=== PATIENT | female | born 1945 | race Caucasian/White ===

== ENCOUNTER → 2016-11-18 | Day surgery (SDC) | payer OTHER ==
[~2016-11-18] VITALS: Ht 160 cm; Wt 54.0 kg
[~2016-11-18] MED LIST: *RESP: ALBUTEROL 2.5 MG/3 ML NEB (PRN) PERIprocedural Use ONLY NEB ONE; ATOR40TA16 PO; BUPIVACAINE HCL PF 0.25% 30 ML VIAL ONE; DEXAMETHASONE SOD PHOS 4 MG/ML VIAL ONE; FAMOTIDINE 20 MG/2 ML VIAL ONE; HYDROmorphone HCL PF 1 MG/ML VIAL IV ONE; HYDROmorphone HCL PF 1 MG/ML VIAL ONE; LACTATED RINGER'S 1000 ML INJ 1,000 ML IV ONE; LACTATED RINGER'S 1000 ML INJ 1,000 ML ONE; LIDOCAINE HCL 1% 30 ML VIAL ONE; LISI10TA3 PO; LORazepam 2 MG/ML VIAL IV ONE; LORazepam 2 MG/ML VIAL ONE; MIDAZOLAM HCL 2 MG/2 ML VIAL ONE; NEOSTIGMINE 3 MG/3 ML SYR IV ONE; ONDANSETRON HCL 4 MG/2 ML VIAL IV PUSH ONE; PHENYLEPH/NS 1000 MCG/10 ML SYR IV ONE; PROMETHAZINE INJ 25 MG/ML VIAL ONE; PROPOFOL 200 MG/20 ML AMP IV ONE; SODIUM CHLORIDE 0.9% INJ 100 ML ONE; SPIRCAP INH; SYMB160A INH; VENTAER INH; ceFAZolin INJ 1,000 MG VIAL ONE; ePHEDrine/NS 25 MG/5 ML SYR IV ONE; fentaNYL CITRATE 250 MCG/5 ML AMP ONE
[2016-11-18 08:02] VITALS: BP 149/80; PULSE 63; RESP 18; TEMP 98.1; O2SAT 96
--- NOTE | 2016-11-18 08:05 | RADHPO ---
EXAM DATE/TIME: 11/18/2016 07:51 [place] COMPARISON: No previous studies available for comparison. INDICATIONS : Evaluate for pneumonia, pneumothorax, or communicable disease. Pre op prolapsed uterus surgery today. MEDICAL HISTORY : Chronic obstructive pulmonary disease. TIA. SURGICAL HISTORY : None. ENCOUNTER: Initial ACUITY: 1 day PAIN SCORE: 0/10 LOCATION: Bilateral chest FINDINGS: A single view of the chest demonstrates the lungs to be symmetrically aerated without evidence of mas s, infiltrate or effusion. The cardiomediastinal contours are unremarkable. Atherosclerotic calcifi cations are present in the aorta. Osseous structures are intact with mild to moderate scoliosis of th e lower thoracic and lumbar spine. CONCLUSION: No acute disease. Bradley Pineda MD on November 18, 2016 at 8:00 Board Certified Radiologist. This report was verified electronically.
[2016-11-18 08:09] LABS: HEMATOCRIT 43.3 % (35.0-46.0); MEAN CELL VOLUME 85.7 FL (80.0-100.0); MEAN CORPUSCULAR HEMOGLOBIN 27.6 PG (27.0-34.0); MEAN CORPUSCULAR HGB CONC 32.2 % (32.0-36.0); PLATELET COUNT 273 TH/MM3 (150-450); RED BLOOD COUNT 5.05 MIL/MM3 (4.00-5.30); RED CELL DISTRIBUTION WIDTH 13.4 % (11.6-17.2); REVIEW FLAG FINAL; WHITE BLOOD COUNT 6.4 TH/MM3 (4.0-11.0)
[2016-11-18 12:33] LABS: BLOOD, URINE TRACE (NEG); GLUCOSE,URINE NEG (NEG); KETONE, URINE 15 mg/dL (NEG); NITRITE,URINE NEG (NEG)
[2016-11-18 12:37] LABS: METHOD OF COLLECTION CLEAN CATCH; URINE COLOR YELLOW (YELLW/STRAW)
[2016-11-18 12:39] LABS: BACTERIA, URINE FEW /hpf; COMMENT (UR) CULTURE INDICATED; CULTURE IF INDICATED CULTURE INDICATED; SQUAMOUS EPITHELIAL CELL URINE 0-5 /hpf (0-5)
[2016-11-18 16:30] VITALS: BP 123/63; PULSE 99; RESP 17; TEMP 98; O2SAT 98
--- NOTE | 2016-11-18 18:27 | EKG ---
Date Performed: 11/18/2016 Time Performed: 08:01:52 PTAGE: 70 years EKG: Sinus rhythm . Normal ECG NO PREVIOUS TRACING DOCTOR: Clifton Kirby Interpretating Date/Time 11/18/2016 18:26:29
--- NOTE | 2017-02-14 19:05 | PD.OP ---
Operative Report Date of Surgery: Nov 18, 2016 Preoperative Diagnosis: (1) Complete uterovaginal prolapse (2) Perineocele Postoperative Diagnosis: (1) Complete uterovaginal prolapse (2) Perineocele Procedure: [place] colpocleisis Perineoplasty Anesthesia: General; Dr. Messi Peralta CRNA Surgeon: Radha Pulido [employer] Worker(s): Poornima Saba Surgeon: n/a Operation and Findings: Indications: This patient has complete uterine procidentia, and has been unable to retain a pessary. She requests surgical correction with the least intra-operative and post-operative risk. After discussing all options she requests colpocleisis, understanding that vaginal intercourse will not be possible post-operatively. Findings: There is complete uterine procidentia with atrophy but otherwise intact mucosa. The uterus is small, sounding to [] centimeters. Only scant tissue returned on curettage. This was sent as specimen. After colpocleisis was accomplished, the vaginal opening remained patulous. Perineoplasty was performed to lessen the chance of failure of the repair. Patent side channels were confirmed. No perforation of rectal mucosa and good apposition confirmed by rectal exam. Procedure: After general anesthesia was induced, the patient was positioned in low stirrups, and prepped with Betadine. SCD's were on and IV antibiotics were administered. After time-out the case was begun. The cervix was grasped with a single tooth tenaculum, and dilated with successively larger dilators until able to accommodate a small curet. Endometrial curettings were scant, but sent as specimen. The defect of the anterior and posterior vaginal reyes were measured. Two identically-sized rectangles were marked for the areas to be excised on both reyes using a gentian berna pen. The uterus was replaced high in the vagina to financial services internship the coaptation, and making sure a strip of intact mucosa was left at the cervix and both sulci to allow any future grainage.The areas to be excised measured []. A dilute vasopressin solution was injected submucosally to help develop planes and limit bleeding. A #15 scalpel, Metzenbaum scissors and gauze were employed as needed to perform tedious dissection and excision of full-thickness mucosa. No rectal or urological defects were created. Blood was controlled with suture or cautery, as it was encountered. Starting at the mucosal edges closest to the cervix, the mucosal edges were brought together, anterior to posterior, with interrupted 3-0 absorbable suture. Then followed another row of sutures from left mucosal edge, across the denuded area to the right side. This was continued with sutures spaced approximately .5 cm apart in rows until the uterus was anatomically replaced, and the most inferior row of sutures brought the introital mucosa together, effectively closing the mucosal defect created. Care was taken to appose the anterior and vaginal reyes without creating deadspace, nor plicating. The perineum still being wide and patulous, further injection was utilized, and the mucosa was excised in an elliptical shape from left to right. The inferior end of the attenuated bulbo cavernosi and associated muscle bodies. These were dissected enough to join with [id number] sutures of 2-0 Vicryl to reinforce the perineal body and reduce the introital diameter significantly. The mucosal edges were closed with apices together in the middle of the closed incision. The patient was returned to supine position, awakened and left the OR breathing on her own. Sponge, needle and instrument counts were correct. Radha Pulido MD Feb 14, 2017 19:04
== END | disposition home or self-care (01) ==
LOC: PHSDC 07:17
PROVIDERS: ATTEND Obstetrics & Gynecology
DX: N81.3 Complete uterovaginal prolapse (principal); N80.3 Endometriosis of pelvic peritoneum; N95.0 Postmenopausal bleeding; J44.9 Chronic obstructive pulmonary disease, unspecified; I10 Essential (primary) hypertension; R10.2 Pelvic and perineal pain
CPT/HCPCS: 00942; 36415; 57120; 58120; 71010; 81001; 85027; 87086; 88305; 93005; J0690; J1100; J1170; J2060; J2250; J2370; J2405; J2550; J2710; J3010; J7120; J7613